=== PATIENT | male | born 1970 | race Caucasian/White ===

== ENCOUNTER → 2021-08-12 09:54 | Outpatient (BNVA) | payer BC, SELFPAY | PROVIDERS: Family Provider Internal Medicine; PCP Internal Medicine; Visit Provider Internal Medicine | DX: Z20.822 Contact with and (suspected) exposure to COVID-19 (principal); Z01.812 Encounter for preprocedural laboratory examination | CPT/HCPCS: 87635 ==

== ENCOUNTER 2021-08-16 08:30 | Day surgery (SDC) | payer BC, SELFPAY ==
[2021-08-11 13:27] VITALS: BMI 33.3
--- NOTE | 2021-08-16 07:56 | P.HP_ITS ---
Same Day Surgery H&P Indication for Procedure/HPI DATE OF PROCEDURE: August 16, 2021 CHIEF COMPLAINT/INDICATIONFOR SURGICAL PROCEDURE: Routine screening average risk PREOP DIAGNOSIS: Routine screening average PLANNED PROCEDRUE: Operation Date: 08/16/21 10:15 Proposed Procedures p Colonoscopy 02875 Z12.11(Not Applicable) - Yordan Newman MD Medications/Allergies* Home Medications Medication Instructions Recorded Confirmed Type cetirizine 10 mg tablet 10 mg PO DAILY 10/01/19 08/11/21 History ascorbic acid (vitamin C) [Vitamin 1,000 mg PO Q12H 08/12/21 08/12/21 History C] aspirin [Aspir-81] 81 mg PO DAILY 08/12/21 08/12/21 History cholecalciferol (vitamin D3) 50 mcg PO DAILY 08/12/21 08/12/21 History [Vitamin D3] Allergies/Adverse Reactions Allergy/AdvReac Type Severity Reaction Status Date / Time No Known Allergies Allergy Verified 08/03/21 12:55 Pertinent History/Comorbid Conditions* Medical History (Updated 03/03/21 @ 11:37 by Yordan Newman MD) Chronic hypertension CKD (chronic kidney disease) Diabetes mellitus GERD (gastroesophageal reflux disease) HERLINDA on CPAP Family History (Updated 10/15/19 @ 10:56 by ROSANNE Bobo) Diabetes Cancer Grandmother Social History Smoking and tobacco status: former smoker Alcohol intake: current Alcohol intake frequency: few times a month History of recent travel: No Pertinent Exam Findings alert, oriented x 3, clear to auscultation bilaterally, regular rate & rhythm, operative site marked and procedure specific exam findings Recommendations Surgery/Procedure today Coding Level of Care Code Acute [employer] Aide for Linette Castro
[2021-08-16 09:24] VITALS: BP 126/86; PULSE 93; RESP 18; TEMP 36.3; O2SAT 97
[2021-08-16] MEDS: sodium chloride 0.9% 1,000 ML 30 ML IV (09:37)
--- NOTE | 2021-08-16 10:22 | ANES.PREANE2 ---
Pre-Anesthetic Assessment Pre-Anesthetic Assessment: Height/Weight: Height 1.88 m Weight 117.934 kg Temp Pulse Resp BP Pulse Ox 97.3 F L 93 18 126/86 97 08/16/21 09:24 08/16/21 09:24 08/16/21 09:24 08/16/21 09:24 08/16/21 09:24 Preop Diagnosis: screen Proposed Procedure: Operation Date: 08/16/21 10:15 Proposed Procedures p Colonoscopy 36383 Z12.11(Not Applicable) - Yordan Newman MD Was Beta Angelo taken within 24 hours: N/A Was Clonidine taken within 24 hours: N/A Last intake: Intake Last Liquid Date 08/15/21 Last Liquid Time 20:00 Last Solid Date 08/14/21 Social: Social History: No alcohol and No tobacco Exam: Pre-Anes Outpt Exam: alert, oriented x 3, clear to auscultation bilaterally and regular rate & rhythm Airway: Submandibular: WNL Cervical ROM: WNL MP: 2 Dentition: Full Pulmonary: Pulmonary: Sleep apnea CV/HEM: CV/HEM: HTN GI: GI: GERD Metabolic: Metabolic: DM Anesthetic Plan: ASA status: 3 Anesthesia: MAC Risk of > 500 ml blood loss (7ml/kg in children): No Meds/Allergies Current Medications: Current Medications Generic Name Dose Route Start Last Admin Trade Name Freq PRN Reason Stop Dose Admin Sodium Chloride 1,000 mls @ 30 ml s/hr 08/16/21 09:15 08/16/21 09:37 Sodium Chloride 0.9% IV 08/17/21 09:14 30 mls/hr .Q24H SARINA Administration PFSH Anesthesia PFSH: Medical History Chronic hypertension CKD (chronic kidney disease) Diabetes mellitus GERD (gastroesophageal reflux disease) HERLINDA on CPAP Family History Grandmother Cancer Other Diabetes Social History Smoking and tobacco status: former smoker Alcohol intake: current Alcohol intake frequency: few times a month History of recent travel: No Data Anesthesia Cardiac Studies: No Data to Display
[2021-08-16 11:47] VITALS: BP 117/81; PULSE 94; RESP 16; O2SAT 95
[2021-08-16 12:02] VITALS: BP 120/85; PULSE 100; RESP 16; O2SAT 94
[2021-08-16 14:25] LABS: Glucose Point of Care 158 mg/dL (70-110)
--- NOTE | 2021-08-16 14:44 | ANE.PACU2 ---
Inpatient post-anesthesia follow up: Airway intact: Yes Vital signs: Temperature 97.3 F Pulse Rate 100 Respiratory Rate 16 Blood Pressure 120/85 Pulse Oximetry 94 Oxygen Delivery Me thod Room Air Oxygen Flow Rate Fraction of Inspir ed Oxygen Hydration adequate: Yes Nausea and vomiting: No Pain level: 2 Mental status: Baseline
== END 2021-08-16 12:15 | disposition home or self-care (01) ==
PROVIDERS: PCP Internal Medicine; Visit Provider Internal Medicine
PROC: 0DJD8ZZ Inspection of Lower Intestinal Tract, Via Natural or Artificial Opening Endoscopic (ICD-10-PCS; CPT 45378; principal; 2021-08-16 10:15)
DX: Z12.11 Encounter for screening for malignant neoplasm of colon (principal); K21.9 Gastro-esophageal reflux disease without esophagitis; I12.9 Hypertensive chronic kidney disease with stage 1 through stage 4 chronic kidney disease, or unspecified chronic kidney disease; E11.22 Type 2 diabetes mellitus with diabetic chronic kidney disease; N18.9 Chronic kidney disease, unspecified; Z87.891 Personal history of nicotine dependence; Z79.82 Long term (current) use of aspirin; Z83.3 Family history of diabetes mellitus
CPT/HCPCS: 36416; 45378; 82962; 96360; 96361; J2704; J7030

== ENCOUNTER 2024-09-02 16:26 | Outpatient (CLI) | payer BC, SELFPAY ==
--- NOTE | 2024-09-02 16:45 | USCV_ITS ---
Swapnil Tripathi Age: 54 Gender: M : 1970 Exam Date: 09/02/2024 16:47 Ordering Phys: Leonard Corona MD Technologist: MELINDA Exam Location: [facility] [place] Indication: PAD Risk Factors: Previous Vascular Surgery: RIGHT LEFT BP: 120.0 / 74.00 BP: 129.0/ 74.00 0 0 Waveform Velocity (cm/s) Velocity (cm/s) Waveform Triphasic 79.0 Iliac Prox 67.2 Triphasic Triphasic 77.6 Iliac Mid 70.7 Triphasic Triphasic Iliac Distal Triphasic 85.5 90.1 Triphasic 90.0 DRYWALL SPRAYER 106.0 Triphasic Triphasic 97.0 SFA Prox 102.0 Triphasic Triphasic 93.0 SFA Mid 91.0 Triphasic Triphasic 79.0 SFA Dist 70.0 Triphasic Triphasic 55.0 POP 70.0 Triphasic Triphasic 112.0 SMASH HAND 88.0 Triphasic Triphasic 83.0 DPA 56.0 Triphasic 1.2 DAYA 1.1 FINDINGS Intimal thickening and some minimal scattered plaques in the femoral and popliteal arteries bilaterally Normal arterial Doppler waveforms and velocities bilaterally Resting DAYA 1.2 on the right and 1.1 on the left. CONCLUSIONS Normal resting ABIs bilaterally Intimal thickening and minimal scattered plaques, bilaterally in the femoral and popliteal arteries No significant stenosis, based on the above findings Dr Inge Shukla MD [facility] (Electronically Signed) Final Date: 03 September 2024 09:25 S
== END 2024-09-02 16:27 | disposition home or self-care (01) ==
LOC: RAD 16:28
PROVIDERS: PCP Family Medicine; Visit Provider Family Medicine
DX: I73.9 Peripheral vascular disease, unspecified (principal); I77.89 Other specified disorders of arteries and arterioles
CPT/HCPCS: 93925

== ENCOUNTER 2025-04-07 09:35 | Outpatient (CLI) | payer BC, SELFPAY ==
--- NOTE | 2025-04-07 09:46 | XRR_ITS ---
PROCEDURE INFORMATION: Exam: XR Thoracic Spine Exam date and time: 04/07/2025 9:52 AM Age: 54 years old Clinical indication: Pain in thoracic spine; Additional info: Back pain TECHNIQUE: Imaging protocol: Radiologic exam of the thoracic spine. Views: 3 views. COMPARISON: CR XR cervical spine 3V* [id number] 04/07/2025 9:52 AM FINDINGS: Bones/joints: Mild multilevel degenerative changes. No acute fracture. Normal alignment. Soft tissues: Unremarkable. XR/XR thoracic spine 3V* [id number] IMPRESSION: No acute findings.
--- NOTE | 2025-04-07 09:46 | XRR_ITS ---
PROCEDURE INFORMATION: Exam: XR Cervical Spine Exam date and time: 04/07/2025 9:52 AM Age: 54 years old Clinical indication: Pain; Cervicalgia TECHNIQUE: Imaging protocol: Radiologic exam of the cervical spine. Views: 2 or 3 views. COMPARISON: CR XR thoracic spine 3V* [id number] 04/07/2025 9:52 AM FINDINGS: Bones/joints: Mild multilevel degenerative changes. No acute fracture. Normal alignment. Craniocervical junction is normal. There is no atlanto dens widening Soft tissues: Unremarkable. XR/XR cervical spine 3V* [id number] IMPRESSION: No acute findings.
--- NOTE | 2025-04-07 09:46 | XRR_ITS ---
PROCEDURE INFORMATION: Exam: XR Lumbosacral Spine Exam date and time: 04/07/2025 9:52 AM Age: 54 years old Clinical indication: Low back pain TECHNIQUE: Imaging protocol: Radiologic exam of the lumbosacral spine. Views: 2 or 3 views. COMPARISON: CR XR thoracic spine 3V* [id number] 04/07/2025 9:52 AM FINDINGS: Bones/joints: Mild multilevel compression deformities of the lumbar spine. Multilevel facet and degenerative disc changes as well as spondylosis. No acute fracture or traumatic malalignment of the lumbar spine. The visualized pelvis appears intact. Degenerative changes are present of the hip joints. Soft tissues: Unremarkable. XR/XR lumbar spine 2-3V* [id number] IMPRESSION: As above.
== END 2025-04-07 09:36 | disposition home or self-care (01) ==
PROVIDERS: PCP Family Medicine; Visit Provider Family Medicine
DX: M47.896 Other spondylosis, lumbar region (principal); M47.894 Other spondylosis, thoracic region; M47.892 Other spondylosis, cervical region; R93.7 Abnormal findings on diagnostic imaging of other parts of musculoskeletal system; M16.0 Bilateral primary osteoarthritis of hip
CPT/HCPCS: 72040; 72072; 72100